=== PATIENT | male | born 1990 | race Caucasian/White ===

== ENCOUNTER 2024-06-14 16:07 | Emergency (ER) | payer SELFPAY ==
[2024-06-14 16:19] VITALS: BP 105/77
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
[2024-06-14] MEDS: MOTRIN 600 MG PO (18:32)
[2024-06-14 18:57] VITALS: BP 150/84
== END 2024-06-14 18:58 | disposition home or self-care (01) ==
LOC: EMR 16:07
PROVIDERS: EMERGENCY PHYSICIAN Emergency Medicine; FAMILY PHYSICIAN Physician Assistant Medical
DX: S09.90XA Unspecified injury of head, initial encounter (principal); S16.1XXA Strain of muscle, fascia and tendon at neck level, initial encounter; V43.52XA Car driver injured in collision with other type car in traffic accident, initial encounter
CPT/HCPCS: 99283